=== PATIENT | female | born 1955 | race Caucasian/White ===

== ENCOUNTER 2018-08-28 11:07 | Day surgery (SDC) | payer OTHER ==
--- NOTE | 2018-08-24 10:35 | GHP ---
DATE OF ADMISSION: 08/28/2018 PREOPERATIVE DIAGNOSIS: Breast hypertrophy. HISTORY OF PRESENTING COMPLAINT: The patient is a 63-year-old woman who has been large breasted sin e her youth. She has been having worsening or symptoms over the years with increased weight and incr eased breast size. She complains of neck, back, and shoulder pain, as well as headaches. PAST MEDICAL HISTORY: Remarkable for hypertension, which is controlled on medication. She also has elevated cholesterol, which is also treated with medication. She has migraine headaches. PAST SURGICAL HISTORY: x2, appendectomy. MEDICATIONS: Losartan 100/12.5 mg 1 p.o. daily, simvastatin 40 mg 1 p.o. daily, Imitrex 100 mg table t p.r.n., pantoprazole 40 mg 1 p.o. daily. She is also on some herbal supplements. PHYSICAL EXAMINATION: GENERAL: She is a pleasant, overweight 63-year-old female. She stands 5 feet 3 inches tall and weighs 231 pounds. CARDIOVASCULAR: Her cardiovascular exam heart sounds are norm al. RESPIRATORY: Clear with good air entry. BREAST: Massive breast hypertrophy. IMPRESSION: Fit for procedure. PLAN: Bilateral breast reduction. /[id number]/MODL
[~2018-08-28 11:07] MED LIST: ceFAZolin 3 GM in D5W 100 ML IV ONE
[2018-08-28] MEDS ORDERED: LIDOCAINE 1% 2 ML INJ ID PRN (11:19)
[2018-08-28] MEDS ORDERED: LR 1,000 ML IV ONE (11:19)
--- NOTE | 2018-08-28 11:53 | PDANEPAE ---
ANE Past Medical History - Cardiovascular History Hx Hypertension: Yes Hx Arrhythmias: No Hx Chest Pain: No Hx Coronary Artery / Peripheral Vascular Disease: No Hx CHF / Valvular Disease: No Hx Palpitations: No Cardiovascular History Comment: high chol. pcp monitors bp medications - Pulmonary History Hx COPD: No Hx Asthma/Reactive Airway Disease: No Hx Recent Upper Respiratory Infection: No Hx Oxygen in Use at Home: No Hx Sleep Apnea: Yes Sleep Apnea Screening Result - Last Documented: Positive Pulmonary History Comment: aris positive uses cpap- instructed pt to bring - Neurologic History Hx Cerebrovascular Accident: No Hx Seizures: No Hx Dementia: No - Endocrine History Hx Diabetes: No - Renal History Hx Renal Disorders: No - Liver History Hx Hepatic Disorders: No - Neurological & Psychiatric Hx Hx Neurological and Psychiatric Disorders: No Neurological / Psychiatric History Comment: situational depression - Cancer History Hx Cancer: No - Congenital Disorder History Hx Congenital Disorders: No - GI History Hx Gastrointestinal Disorders: Yes Gastrointestinal History Comment: reflux - Other Health History Other Health History: wears glasses - Chronic Pain History Chronic Pain: Yes (back pain) - Surgical History Prior Surgeries: x2. appy ANE Review of Systems Review of Systems: - Exercise capacity METS (RN): 4 METS ANE Patient History - Allergies Allergies/Adverse Reactions: No Known Allergies Allergy (Verified 08/27/18 10:59) - Home Medications Home medications: home medication list seen and reviewed Home Medications: Aspirin 81mg (*) 08/27/18 [Last Taken 08/27/18] Herbals/Supplements -Info Only 08/27/18 [Last Taken 08/27/18] Losartan/Hydrochlorothiazide 08/27/18 [Last Taken 08/27/18] Pantoprazole Sodium 08/27/18 [Last Taken 08/28/18 08:30] SIMVASTATIN 08/27/18 [Last Taken 08/28/18 08:30] - NPO status NPO Status: no food or drink >8 hours - Smoking Hx Smoking Status: Never smoked - Family Anes Hx Family Hx Anesthesia Complications: none ANE Labs/Vital Signs - Vital Signs Vital Signs: reviewed preoperatively; see RN documention for details Height: 160.02 cm Weight: 104.326 kg ANE Physical Exam - Airway Neck exam: FROM Mallampati Score: Class 2 Mouth exam: normal dental/mouth exam - Pulmonary Pulmonary: clear to auscultation - Cardiovascular Cardiovascular: regular rate and rhythym - ASA Status ASA Status: II ANE Anesthesia Plan Anesthesia Plan: general endotracheal anesthesia
[2018-08-28] MEDS ORDERED: MIDAZOLAM 2 MG/2 ML VIAL IVP ONE (12:01)
[2018-08-28] MEDS ORDERED: LIDO/EPI 1% **for epidural** 30 ML SDV ONE ×3 (12:06→12:50)
[2018-08-28] MEDS ORDERED: HYDROmorphONE/DILAUDID 2 MG/ML INJ ONE (12:22)
[2018-08-28] MEDS ORDERED: PROPOFOL 200 MG/20 ML VIAL ONE (12:22)
[2018-08-28] MEDS ORDERED: ROCURONIUM 50 MG/5 ML VIAL ONE (12:24)
[2018-08-28] MEDS ORDERED: DEXAMETHASONE 4 MG/ML VIAL ONE (12:24)
[2018-08-28] MEDS ORDERED: RANITIDINE 50 MG/2 ML VIAL ONE (12:24)
[2018-08-28] MEDS ORDERED: METOCLOPRAMIDE 10 MG/2 ML VIAL ONE (12:26)
[2018-08-28] MEDS ORDERED: PETROLAT,WHT/MIN OIL/SOD CHL 3.5 GM OPHT.OINT ONE (12:28)
[2018-08-28] MEDS ORDERED: ceFAZolin 2 GM/DEXTROSE 100 ML IV ONE (12:30)
--- NOTE | 2018-08-28 12:31 | PDHPUP ---
History & Physical Update H&P update statement: This history and physical update is based on an assessment of the patient which was completed after admission or registration (within 24 hours), but prior to the surgery/procedure. H&P update: H&P reviewed & patient examined, no change in patient's condition since H&P completed
[2018-08-28] MEDS ORDERED: LIDO/EPI 1% **Not for Epidural 20 ML MDV ONE (12:49)
[2018-08-28] MEDS ORDERED: ONDANSETRON 4 MG/2 ML VIAL ONE ×2 (14:33→15:57)
[2018-08-28] MEDS ORDERED: KETOROLAC 30 MG/1 ML SDV ONE (14:51)
[2018-08-28] MEDS ORDERED: ePHEDrine SULFATE 25 MG/5 ML SYR ONE (14:51)
[2018-08-28] MEDS ORDERED: HYDROCODONE/APAP 5/325 TAB PO PRN (15:04)
[2018-08-28] MEDS ORDERED: PROMETHAZINE HCL 25 MG/ML INJ IVP PRN (15:04)
[2018-08-28] MEDS ORDERED: fentaNYL 100 MCG/2 ML INJ IVP PRN (15:04)
[2018-08-28] MEDS ORDERED: METOCLOPRAMIDE 10 MG/2 ML VIAL IVP PRN (15:04)
[2018-08-28] MEDS ORDERED: DIAZEPAM 5 MG/ML 1 ML SYR IVP PRN (15:04)
[2018-08-28] MEDS ORDERED: LR 500 ML IV PRN (15:04)
[2018-08-28] MEDS ORDERED: MEPERIDINE 25 MG/0.5 ML AMP IVP PRN (15:04)
[2018-08-28] MEDS ORDERED: ONDANSETRON 4 MG/2 ML VIAL IVP PRN (15:04)
[2018-08-28] MEDS ORDERED: ALBUTEROL 3 ML DEYVIAL IH PRN (15:04)
[2018-08-28] MEDS ORDERED: oxyCODONE IR 5 MG TAB PO PRN (15:04)
[2018-08-28] MEDS ORDERED: HYDROmorphONE/DILAUDID 2 MG/ML INJ IVP PRN (15:04)
[2018-08-28] MEDS ORDERED: DEXAMETHASONE 4 MG/ML VIAL IVP PRN (15:04)
[2018-08-28] MEDS ORDERED: NALOXONE HCL 0.4 MG/ML INJ IVP PRN (15:04)
[2018-08-28] MEDS ORDERED: ACETAMINOPHEN 500 MG TAB PO PRN (15:04)
[2018-08-28] MEDS ORDERED: LABETALOL HCL 5 MG/ML 20 ML MDV IVP PRN (15:04)
--- NOTE | 2018-08-28 15:35 | POSTOPPROG ---
Post Op Note Date of Operation: 08/28/18 Surgeon: Rivas Wells Pre-op Diagnosis: breast Hypertrophy Post-op Diagnosis: Same Procedure: Bilateral Breast Reduction Inf/Abcess present in the surg proc area at time of surgery?: No EBL: 50-100 Drains: Nick Macias
--- NOTE | 2018-08-28 15:37 | POSTANESTH ---
Post Anesthetic Evaluation Cardiovascular Status: Normal, Stable Respiratory Status: Normal, Stable Level of Consciousness/Mental Status: Can Participate in Eval Pain Control: Adequate, Prn Tx Ordered Nausea/Vomiting Control: Adequate, Prn Tx Ordered Complications Possibly Related to Anesthesia: None Noted
[2018-08-28 17:56] VITALS: BP 136/76
--- NOTE | 2018-08-29 03:11 | GOP ---
DATE OF OPERATION: 08/28/2018 SURGEON: Rivas Wells MD PREOPERATIVE DIAGNOSIS: Breast hypertrophy. POSTOPERATIVE DIAGNOSIS: Breast hypertrophy. PROCEDURE PERFORMED: Bilateral breast reduction. FINDINGS: ESTIMATED BLOOD LOSS: 50 mL total. DESCRIPTION OF PROCEDURE: The patient lying supine under general anesthesia, the anterior chest isha on was prepped and draped in usual fashion. Tumescent infiltration was carried out using 1000 mL of saline to each breast, which contained 500 mg of lidocaine and 250 mcg of epinephrine per L. Liposuction was then carried out with 4 mm blunt-tipped cannula, removing 1500 cc from each side of w hich 1000 cc was fat after it on each side. The incisions were then made according to preo perative markings for a modified vertical pattern breast reduction with superior medial pedicle techn ique. Pedicles were de-epithelialized and skin was removed from the rest of the pattern along with s ome underlying glandular tissue. The weight of the specimens was 286 g on the left side and 342 g on the right side. Temporary staple closure was used to confirm that the breasts were similarly sized. Final closure was then carried out with 3-0 Stratafix running subcuticular sutures. PATTIE drains were p laced bilaterally. The procedure was tolerated well. /[id number]/MODL
== END 2018-08-28 18:09 | disposition home or self-care (01) ==
LOC: FSGY 11:07
PROVIDERS: ATTEND Plastic Surgery
DX: N62 Hypertrophy of breast (principal); M54.2 Cervicalgia; M54.9 Dorsalgia, unspecified; M25.519 Pain in unspecified shoulder; R51 Headache; I10 Essential (primary) hypertension; E78.5 Hyperlipidemia, unspecified; E66.9 Obesity, unspecified; G47.33 Obstructive sleep apnea (adult) (pediatric); K21.9 Gastro-esophageal reflux disease without esophagitis; Z79.82 Long term (current) use of aspirin
CPT/HCPCS: J0690; J1100; J1170; J1885; J2250; J2405; J2704; J2765; J2780